=== PATIENT | female | born 1990 | race Caucasian/White ===

== ENCOUNTER 2017-01-13 20:23 | Emergency (ER) | payer SELFPAY ==
[~2017-01-13] VITALS: Ht 167.6 cm; Wt 70.0 kg
[~2017-01-13 20:23] MED LIST: DICY1TAB26 PO; LOMO PO; ZOFR4TAB3 SL
[2017-01-13 20:25] VITALS: BP 144/99; PULSE 144; RESP 24; TEMP 98.3; O2SAT 98
--- NOTE | 2017-01-13 20:35 | PD ---
Physical Exam Time Seen by Provider: 20:33 Narrative 26 y/o female ehre for evaluation of anxiety secondary to "family problems." She feels jittery, shaky, emotionally overwhelmed for 5 days. Endorses vomiting /diarrhea associated with this. She is tearful and hyperventilating during interview. Vital signs reviewed. Seen at triage desk. Awaiting bed placement. Data Data Last Documented VS Vital Signs Date Time Temp Pulse Resp B/P Pulse Ox O2 Delivery O2 Flow Rate FiO2 01/13/17 20:25 98.3 144 24 144/99 98 MDM Medical Record Reviewed: Yes Supervised Visit with CARMEN: No Asim Sellers Jan 13, 2017 20:35
[2017-01-13] MEDS ORDERED: SODIUM CHLOR 0.9% 1000 ML INJ 1,000 ML IV SCH (20:50)
--- NOTE | 2017-01-13 20:56 | PD ---
HPI Chief Complaint: Anxiety Time Seen by Provider: 20:52 Travel History International Travel<30 days: No Contact w/Intl Traveler<30days: No Traveled to known affect area: No History of Present Illness HPI Patient comes to the emergency department for evaluation of possible panic attacks ongoing for 5 days. Patient denies ever being diagnosed with panic attacks states her mother gets them. Patient states over the past 5 days she has had to deal with a lot of family issues causing her to feel overwhelmed. Patient reports associated nausea, vomiting, and diarrhea. Denies any blood vomit or stool. Reports vomiting is nonbilious. Denies any chest pain, shortness of breath, abdominal pain, thoracic, loss change in bowel or bladder, , melena, fevers, recent travel, edema, smoking, or control use. Patient states she is able to easily he is breathing techniques to calm herself down, but then gets herself work back up again. Patient reports feeling jittery and shaky with this. Denies any suicidal or homicidal ideations. PFSH Past Medical History Medical History: Denies Significant Hx Diminished Hearing: No ?: Not LMP: 12/08/16 : 0 Past Surgical History Surgical History: No Previous Surgery Social History Alcohol Use: Yes (rarely) Tobacco Use: No Substance Use: Yes (marijuana occ) Allergies-Medications (Allergen,Severity, Reaction): Coded Allergies: No Known Allergies (Verified , 01/13/17) Reported Meds & Prescriptions Reported Meds & Active Scripts Active Vistaril (Hydroxyzine Pamoate) 25 Mg Cap 25 Mg PO Q6H PRN Review of Systems Except as stated in HPI: all other systems reviewed are Neg Physical Exam Narrative GENERAL: Well-developed, well nourished, in no acute distress, and non-ill appearing. SKIN: Focused skin assessment warm and dry. HEAD: Atraumatic. Normocephalic. EYES: Pupils equal and round. EOMI. No scleral icterus. No injection or drainage. ENT: No nasal bleeding or discharge. Mucous membranes pink and moist. NECK: Trachea midline. No JVD. Supple. No nuclear rigidity. CARDIOVASCULAR: Regular rate and rhythm. No murmur appreciated. RESPIRATORY: No accessory muscle use. No respiratory distress. Clear to auscultation. Breath sounds equal bilaterally. GASTROINTESTINAL: Abdomen soft, non-tender, nondistended, and no guarding. Hepatic and splenic margins not palpable. Normal bowel sounds 4. No pulsatile mass. MUSCULOSKELETAL: No obvious deformities. No clubbing. No cyanosis. No edema. Full range of motion. NEUROLOGICAL: Awake and alert. No obvious cranial nerve deficits. Motor grossly within normal limits. Normal speech. PSYCHIATRIC: Appropriate mood and affect; insight and judgment normal. Data Data Last Documented VS Vital Signs Date Time Temp Pulse Resp B/P Pulse Ox O2 Delivery O2 Flow Rate FiO2 01/13/17 23:00 66 18 118/70 98 Room Air 01/13/17 20:25 98.3 Orders Complete Blood Count With Diff (01/13/17 20:50) Comprehensive Metabolic Panel (01/13/17 20:50) Lipase (01/13/17 20:50) Urinalysis - C+S If Indicated (01/13/17 20:50) Iv Access Insert/Monitor (01/13/17 20:50) Ecg Monitoring (01/13/17 20:50) Oximetry (01/13/17 20:50) Ondansetron Inj (Zofran Inj) (01/13/17 21:00) Sodium Chlor 0.9% 1000 Ml Inj (Ns 1000 M (01/13/17 20:50) Sodium Chloride 0.9% Flush (Ns Flush) (01/13/17 21:00) Electrocardiogram (01/13/17 20:50) Ed Urine Pregnancytest Poc (01/13/17 20:50) Hydroxyzine Pamoate (Vistaril) (01/13/17 21:00) Drug Screen, Random Urine (01/13/17 20:54) Alcohol (Ethanol) (01/13/17 20:50) Ondansetron Inj (Zofran Inj) (01/13/17 22:15) Sodium Chlor 0.9% 1000 Ml Inj (Ns 1000 M (01/13/17 22:30) Potassium Chloride (Kcl) (01/13/17 22:30) Labs Laboratory Tests Test 01/13/17 01/13/17 01/13/17 21:12 22:10 22:45 White Blood Count 12.1 TH/MM3 Red Blood Count 4.85 MIL/MM3 Hemoglobin 13.9 GM/DL Hematocrit 40.6 % Mean Corpuscular Volume 83.8 FL Mean Corpuscular Hemoglobin 28.6 PG Mean Corpuscular Hemoglobin 34.1 % Concent Red Cell Distribution Width 13.2 % Platelet Count 396 TH/MM3 Mean Platelet Volume 8.2 FL Neutrophils (%) (Auto) 76.7 % Lymphocytes (%) (Auto) 14.7 % Monocytes (%) (Auto) 8.2 % Eosinophils (%) (Auto) 0.0 % Basophils (%) (Auto) 0.4 % Neutrophils # (Auto) 9.2 TH/MM3 Lymphocytes # (Auto) 1.8 TH/MM3 Monocytes # (Auto) 1.0 TH/MM3 Eosinophils # (Auto) 0.0 TH/MM3 Basophils # (Auto) 0.1 TH/MM3 CBC Comment DIFF FINAL Differential Comment Sodium Level 137 MEQ/L Potassium Level 3.3 MEQ/L Chloride Level 108 MEQ/L Carbon Dioxide Level 22.2 MEQ/L Anion Gap 7 MEQ/L Blood Urea Nitrogen 15 MG/DL Creatinine 0.93 MG/DL Estimat Glomerular Filtration 72 ML/MIN Rate Random Glucose 105 MG/DL Calcium Level 8.6 MG/DL Total Bilirubin 0.5 MG/DL Aspartate Amino Transf 15 U/L (AST/SGOT) Alanine Aminotransferase 19 U/L (ALT/SGPT) Alkaline Phosphatase 90 U/L Total Protein 7.5 GM/DL Albumin 4.0 GM/DL Lipase 128 U/L Ethyl Alcohol Level LESS THAN 3 MG/DL Urine Opiates Screen NEG Urine Barbiturates Screen NEG Urine Amphetamines Screen NEG Urine Benzodiazepines Screen NEG Urine Cocaine Screen NEG Urine Cannabinoids Screen POS Urine Color YELLOW Urine Turbidity HAZY Urine pH 5.5 Urine Specific [place] 1.022 Urine Protein TRACE mg/dL Urine Glucose (UA) NEG mg/dL Urine Ketones 40 mg/dL Urine Occult Blood NEG Urine Nitrite NEG Urine Bilirubin NEG Urine Urobilinogen LESS THAN 2.0 MG/DL Urine Leukocyte Esterase TRACE Urine WBC 2 /hpf Urine Squamous Epithelial 5 /hpf Cells Urine Hyaline Casts 2 /lpf Urine Mucus FEW /lpf Microscopic Urinalysis Comment CULT NOT INDICATED MDM Medical Decision Making Medical Screen Exam Complete: Yes Emergency Medical Condition: Yes Interpretation(s) EKG reviewed by Dr. Arango shows sinus rhythm with ventricular rate of 81. No STEMI. Differential Diagnosis Electrolyte abnormality, gastritis, stress, anxiety, dehydration, UTI, other Narrative Course 2225 patient reassess reports improvement of symptoms. UA pending. Patient looks great, non-ill appearing but does appear slightly volume depleted without evidence of significant dehydration. The patient was given IVF in the Emergency Department for rehydration. The patient responded well and is tolerating fluids and appears hydrated. I suspect stress-induced versus possible gastritis by history and exam. The abdominal exam is unremarkable without defined focal tenderness. There are normal active bowel sounds without any masses, distension, or significant tenderness. There was no evidence of an acute, surgical abdomen at this time. There was no clinical evidence to support cholecystitis/cholelithiasis, pancreatitis, perforation of gastric ulcer, colitis, diverticulitis, peritonitis, obstruction, volvulus, early appendicitis , or hernial incarceration or strangulation at this time. There was no evidence to support vascular pathology such as AAA, mesenteric ischemia. There was also no clinical evidence by history, exam or risk factors to suggest atypical presentation of cardiac disease such as ACS, AMI or atypical angina. No evidence to suggest genitourinary etiology as well. During the course of the ED visit, the patient noted improvement. Clinical picture was discussed with the patient, as well as plan of care. The patient was instructed to follow up with their physician. Abdominal pain warnings were discussed with the patient. The patient is to return if worsens, pain worsens or changes, develop fever, inability to tolerate fluids with or without vomiting, increased vomiting, blood in vomit, unable to establish follow up or as needed. The patient agrees with plan. The patient was tolerating fluids at time of discharge. Patient in no obvious distress upon re-evaluation. All pertinent laboratory result(s) discussed with patient/family. Discussed patient with Dr. Arango prior to discharge, who is in agreement with plan of care and disposition. Patient was asked if they wanted to speak to my attending, which the patient did not wish to do at this time. Any questions/concerns in reference to patient diagnosis/condition discussed and clarified prior to patient's discharge. Reinforced sheer importance of close follow up with patient's primary physician or primary care clinic. Instructed patient to return to ED immediately, if symptoms return/worsen. Pt showed understanding of above instructions. Further instructions and recommendations were detailed in discharge paperwork. Pt ambulated without difficulty out of ED at discharge. Diagnosis Primary Impression: Nausea vomiting and diarrhea Additional Impression: Stress Referrals: [facility] Patient Instructions: Acute Diarrhea (GEN), Acute Nausea and Vomiting (ED), General Instructions, Stress (ED) Additional Instructions: Follow-up with your primary care physician and/or [facility] in 2-3 days for reevaluation. Take all medication as prescribed. Return to the emergency department if symptoms get worse. Med/Other Pt SpecificInfo: Prescription(s) given Scripts Hydroxyzine Pamoate (Vistaril)25 Mg Cap25 Mg PO Q6H PRN (ANXIETY AND/OR AGITATION) #15 CAP Ref 0 Prov:eMgan Arango MD 01/13/17 Disposition: 01 DISCHARGE HOME Condition: Stable Vasyl Alvarado Jan 13, 2017 20:56
[2017-01-13] MEDS ORDERED: SODIUM CHLORIDE 0.9% FLUSH 10 ML FLUSH IV FLUSH PRN (21:00)
[2017-01-13] MEDS ORDERED: hydrOXYzine PAMOATE 25 MG CAP PO ONE (21:00)
[2017-01-13] MEDS ORDERED: ONDANSETRON HCL 4 MG/2 ML VIAL IVP ONE (21:00)
[2017-01-13 21:05] VITALS: RESP 33; O2SAT 99
[2017-01-13 21:30] LABS: AUTOMATED NEUTROPHIL # 9.2 TH/MM3 (1.8-7.7); BASOPHIL # 0.1 TH/MM3 (0-0.2); BASOPHIL % 0.4 % (0.0-2.0); HEMATOCRIT 40.6 % (35.0-46.0); HEMO FLAGS DIFF FINAL; LYMPH % 14.7 % (9.0-44.0); LYMPHOCYTE # 1.8 TH/MM3 (1.0-4.8); MEAN CELL VOLUME 83.8 FL (80.0-100.0); MEAN CORPUSCULAR HEMOGLOBIN 28.6 PG (27.0-34.0); MEAN CORPUSCULAR HGB CONC 34.1 % (32.0-36.0); MONO % 8.2 % (0.0-8.0); NEUT % 76.7 % (16.0-70.0); PLATELET COUNT 396 TH/MM3 (150-450); RED BLOOD COUNT 4.85 MIL/MM3 (4.00-5.30); RED CELL DISTRIBUTION WIDTH 13.2 % (11.6-17.2); WHITE BLOOD COUNT 12.1 TH/MM3 (4.0-11.0)
[2017-01-13 21:54] LABS: ALCOHOL LESS THAN 3 MG/DL (0-5); ANION GAP 7 MEQ/L (5-15); AST (GOT) 15 U/L (15-37); BICARBONATE 22.2 MEQ/L (21.0-32.0); BLOOD UREA NITROGEN 15 MG/DL (7-18); CHLORIDE 108 MEQ/L (98-107); GLOMERULAR FILTRATION RATE 72 ML/MIN (>89); POTASSIUM 3.3 MEQ/L (3.5-5.1); SODIUM (NA) 137 MEQ/L (136-145)
[2017-01-13 21:55] LABS: ALT (GPT) 19 U/L (10-53)
[2017-01-13 21:57] LABS: ALKALINE PHOSPHATASE 90 U/L (45-117); TOTAL BILIRUBIN ADULT 0.5 MG/DL (0.2-1.0)
[2017-01-13] MEDS ORDERED: ONDANSETRON HCL 4 MG/2 ML VIAL IV PUSH ONE (22:15)
[2017-01-13] MEDS ORDERED: POTASSIUM CHLORIDE 20 MEQ CONTROLLED RELEASE TAB PO ONE (22:30)
[2017-01-13] MEDS ORDERED: SODIUM CHLOR 0.9% 1000 ML INJ 1,000 ML IV ONE (22:30)
[2017-01-13] MEDS ORDERED: VIST25CA PO (22:31)
[2017-01-13 23:00] VITALS: BP 118/70; PULSE 66; RESP 18; O2SAT 98
[2017-01-13 23:16] LABS: BLOOD, URINE NEG (NEG); COMMENT (UR) CULT NOT INDICATED; CULTURE IF INDICATED CULT NOT INDICATED; GLUCOSE,URINE NEG (NEG); HYALINE CAST, URINE 2 /lpf (RARE); KETONE, URINE 40 mg/dL (NEG); MUCUS URINE FEW /lpf (OCC); NITRITE,URINE NEG (NEG); PH, URINE 5.5 (5.0-8.5); SQUAMOUS EPITHELIAL CELL URINE 5 /hpf (0-5); URINE COLOR YELLOW (YELLW/STRAW)
--- NOTE | 2017-01-14 14:34 | EKG ---
Date Performed: 01/13/2017 Time Performed: 21:20:27 PTAGE: 26 years EKG: Sinus rhythm WITH SINUS ARRHYTHMIA NORMAL ECG NO PREVIOUS TRACING DOCTOR: John Aldrich Interpretating Date/Time 01/14/2017 14:33:01
== END 2017-01-13 23:54 | disposition home or self-care (01) ==
LOC: NEPC 20:23
DX: R11.2 Nausea with vomiting, unspecified (principal); R19.7 Diarrhea, unspecified; F43.9 Reaction to severe stress, unspecified; F41.0 Panic disorder [episodic paroxysmal anxiety]; I49.8 Other specified cardiac arrhythmias
CPT/HCPCS: 80053; 80307; 81001; 83690; 84703; 85025; 93005; 96361; 96374; 96376; 99284; J2405; J7030; Q0177

== ENCOUNTER 2017-01-16 12:57 | Inpatient (IN) | payer SELFPAY ==
[~2017-01-16] VITALS: Ht 167.6 cm; Wt 65.8 kg
[~2017-01-16 12:57] MED LIST changes: +VIST25CA PO
[2017-01-16 13:01] VITALS: BP 143/100; PULSE 122; RESP 24; TEMP 98.5; O2SAT 97
--- NOTE | 2017-01-16 13:38 | PD ---
Physical Exam Date Seen by Provider: Jan 16, 2017 Time Seen by Provider: 13:35 Narrative 26 y/o female here for ongoing abdominal pain and current complaints of Depression and ongoing crying. Denies suicidal or homicidal thoughts. was seen 3 days ago and given Visteril and referred to [facility]. They were seen there, but sent here for Psych Eval. Vital Signs reviewed. Patient is Stable and awaiting Bed Placement. Data Data Last Documented VS Vital Signs Date Time Temp Pulse Resp B/P (MAP) Pulse Ox O2 Delivery O2 Flow Rate FiO2 01/16/17 13:01 98.5 122 24 143/100 (114) 97 Room Air [facility] Medical Record Reviewed: Yes Supervised Visit with CARMEN: Yes Condition: Stable Jackson Galeas Jan 16, 2017 13:38
[2017-01-16 14:25] LABS: BASOPHIL # 0.1 TH/MM3 (0-0.2); BASOPHIL % 1.2 % (0.0-2.0); EOSINOPHIL # 0.1 TH/MM3 (0-0.4); EOSINOPHIL % 1.7 % (0.0-4.0); HEMATOCRIT 42.2 % (35.0-46.0); HEMO FLAGS DIFF FINAL; LYMPH % 24.8 % (9.0-44.0); MEAN CORPUSCULAR HEMOGLOBIN 28.7 PG (27.0-34.0); MEAN CORPUSCULAR HGB CONC 33.4 % (32.0-36.0); MONO % 11.3 % (0.0-8.0); PLATELET COUNT 369 TH/MM3 (150-450); RED BLOOD COUNT 4.91 MIL/MM3 (4.00-5.30); RED CELL DISTRIBUTION WIDTH 13.5 % (11.6-17.2); WHITE BLOOD COUNT 8.2 TH/MM3 (4.0-11.0)
[2017-01-16 14:29] LABS: BLOOD, URINE NEG (NEG); GLUCOSE,URINE NEG (NEG); KETONE, URINE NEG (NEG); NITRITE,URINE NEG (NEG); PH, URINE 5.5 (5.0-8.5); URINE COLOR LIGHT-YELLOW (YELLW/STRAW)
[2017-01-16 14:30] LABS: COMMENT (UR) CULT NOT INDICATED; CULTURE IF INDICATED CULT NOT INDICATED
[2017-01-16 14:42] LABS: ANION GAP 8 MEQ/L (5-15); AST (GOT) 10 U/L (15-37); BICARBONATE 27.9 MEQ/L (21.0-32.0); BLOOD UREA NITROGEN 8 MG/DL (7-18); CHLORIDE 104 MEQ/L (98-107); GLOMERULAR FILTRATION RATE 75 ML/MIN (>89); POTASSIUM 3.4 MEQ/L (3.5-5.1); SODIUM (NA) 140 MEQ/L (136-145)
[2017-01-16 14:43] LABS: ALT (GPT) 18 U/L (10-53)
[2017-01-16 14:46] LABS: ALKALINE PHOSPHATASE 80 U/L (45-117); TOTAL BILIRUBIN ADULT 0.4 MG/DL (0.2-1.0)
--- NOTE | 2017-01-16 17:30 | PD ---
HPI Chief Complaint: Depression Time Seen by Provider: 16:33 Travel History International Travel<30 days: No Contact w/Intl Traveler<30days: No Traveled to known affect area: No History of Present Illness HPI 26-year-old female presents to the emergency Department voluntarily for psychiatric evaluation. Patient states that she has been having anxiety attack starting one week ago. She states that she had a ruptured child in her father recently tried to get back in her life. She states that this is causing a lot of anxiety bring back memories. The patient is tearful upon my exam. She denies any suicidal or homicidal thoughts. She states that she smokes marijuana occasionally, denies any other illicit drug use. Patient is no chronic medical problems. She states that she was given a prescription for Vistaril for anxiety recently. Otherwise, she takes no other medications. PFSH Past Medical History Diminished Hearing: No ?: Not LMP: 12/08/16 : 0 Social History Alcohol Use: Yes (rarely) Tobacco Use: No Substance Use: Yes (marijuana occ) Allergies-Medications (Allergen,Severity, Reaction): Coded Allergies: No Known Allergies (Verified , 01/13/17) Reported Meds & Prescriptions Reported Meds & Active Scripts Active Vistaril (Hydroxyzine Pamoate) 25 Mg Cap 25 Mg PO Q6H PRN Review of Systems Except as stated in HPI: all other systems reviewed are Neg Physical Exam Narrative GENERAL: Well-nourished, well-developed female patient, ambulatory. Afebrile. SKIN: Focused skin assessment warm/dry. HEAD: Normocephalic. Atraumatic. EYES: No scleral icterus. No injection or drainage. NECK: Supple, trachea midline. No JVD or lymphadenopathy. CARDIOVASCULAR: Regular rate and rhythm without murmurs, gallops, or rubs. RESPIRATORY: Breath sounds equal bilaterally. No accessory muscle use. Lungs sounds are clear to auscultation. GASTROINTESTINAL: Abdomen soft, non-tender, nondistended. MUSCULOSKELETAL: No cyanosis, or edema. PSYCHIATRIC: No delusional thought processes. No hallucinations. Patient is tearful. Data Data Last Documented VS Vital Signs Date Time Temp Pulse Resp B/P (MAP) Pulse Ox O2 Delivery O2 Flow Rate FiO2 01/16/17 17:57 99 20 141/97 (112) 100 01/16/17 13:01 98.5 Room Air Orders Orders Complete Blood Count With Diff (01/16/17 13:39) Comprehensive Metabolic Panel (01/16/17 13:39) Urinalysis - C+S If Indicated (01/16/17 13:39) Ed Urine Pregnancytest Poc (01/16/17 13:39) Psych Screen (01/16/17 13:39) Drug Screen, Random Urine (01/16/17 13:39) Labs Laboratory Tests Test 01/16/17 13:39 01/16/17 13:50 Urine Opiates Screen NEG Urine Barbiturates Screen NEG Urine Amphetamines Screen NEG Urine Benzodiazepines Screen NEG Urine Cocaine Screen NEG Urine Cannabinoids Screen POS White Blood Count 8.2 TH/MM3 Red Blood Count 4.91 MIL/MM3 Hemoglobin 14.1 GM/DL Hematocrit 42.2 % Mean Corpuscular Volume 86.0 FL Mean Corpuscular Hemoglobin 28.7 PG Mean Corpuscular Hemoglobin Concent 33.4 % Red Cell Distribution Width 13.5 % Platelet Count 369 TH/MM3 Mean Platelet Volume 8.0 FL Neutrophils (%) (Auto) 61.0 % Lymphocytes (%) (Auto) 24.8 % Monocytes (%) (Auto) 11.3 % Eosinophils (%) (Auto) 1.7 % Basophils (%) (Auto) 1.2 % Neutrophils # (Auto) 5.0 TH/MM3 Lymphocytes # (Auto) 2.0 TH/MM3 Monocytes # (Auto) 0.9 TH/MM3 Eosinophils # (Auto) 0.1 TH/MM3 Basophils # (Auto) 0.1 TH/MM3 CBC Comment DIFF FINAL Differential Comment Urine Color LIGHT-YELLOW Urine Turbidity CLEAR Urine pH 5.5 Urine Specific [place] 1.005 Urine Protein NEG mg/dL Urine Glucose (UA) NEG mg/dL Urine Ketones NEG mg/dL Urine Occult Blood NEG Urine Nitrite NEG Urine Bilirubin NEG Urine Urobilinogen LESS THAN 2.0 MG/DL Urine Leukocyte Esterase NEG Urine RBC LESS THAN 1 /hpf Urine WBC LESS THAN 1 /hpf Microscopic Urinalysis Comment CULT NOT INDICATED Blood Urea Nitrogen 8 MG/DL Creatinine 0.90 MG/DL Random Glucose 90 MG/DL Total Protein 7.3 GM/DL Albumin 3.9 GM/DL Calcium Level 8.8 MG/DL Alkaline Phosphatase 80 U/L Aspartate Amino Transf (AST/SGOT) 10 U/L Alanine Aminotransferase (ALT/SGPT) 18 U/L Total Bilirubin 0.4 MG/DL Sodium Level 140 MEQ/L Potassium Level 3.4 MEQ/L Chloride Level 104 MEQ/L Carbon Dioxide Level 27.9 MEQ/L Anion Gap 8 MEQ/L Estimat Glomerular Filtration Rate 75 ML/MIN MDM Medical Decision Making Medical Screen Exam Complete: Yes Emergency Medical Condition: Yes Medical Record Reviewed: Yes Differential Diagnosis Anxiety versus depression versus medical clearance Narrative Course 18-year-old female presents to the emergency Department voluntarily for psychiatric evaluation. Patient states she is anxious, but denies any suicidal or homicidal ideation. CBC shows no acute abnormality. CMP shows no acute abnormality. Urine drug screen is positive for cannabinoids. UA is negative for acute infection. Patient is medically cleared for psychiatric screening and disposition. Mental health screening discussed with the patient. Psychiatric screen ordered. Diagnosis Primary Impression: Anxiety Additional Instructions: Patient is medically cleared for psychiatric screening and disposition. Condition: Stable Margoth Caputo Jan 16, 2017 17:29
[2017-01-16 17:57] VITALS: BP 141/97; PULSE 99; RESP 20; O2SAT 100
[2017-01-16] MEDS ORDERED: ONDANSETRON ODT 4 MG TAB PO ONE (19:45)
[2017-01-16 22:06] VITALS: BP 116/79; PULSE 77; RESP 18
[2017-01-16] MEDS ORDERED: POTASSIUM CHLORIDE 20 MEQ CONTROLLED RELEASE TAB PO ONE (23:30)
[2017-01-17 00:12] VITALS: BP 153/81; PULSE 87; RESP 18; TEMP 97; O2SAT 100
--- NOTE | 2017-01-17 01:31 | PD.CONS ---
HPI [facility] Consult Requested By Dr. Hagen . Reason for Consult Nausea, vomiting, and diarrhea . Primary Care Physician No Primary Care Physician Diagnoses: (1) Loose stools (2) Nausea & vomiting (3) Anxiety History of Present Illness Written by Radha Johansen, acting as scribe for Dr. Ruiz on 01/17/17 at 01:28. The patient was seen in psychiatry. She reports having loose stools since Monday occurring about once or twice a day accompanied by nausea and vomiting. The loose stools are described as watery. She denies any blood or mucus in her stool. She denies abdominal pain other than "gas". She reports her nausea and vomiting seems to be related to increased anxiety. She states she doesn't eat because of anxiety and stress. When she finally eats and gets food in her mouth , it makes her feel nauseated. She notices no relationship between marijuana smoking and occurrence of nausea. She denies eating seafood recently, recent travel, or sick close contacts. She states that her last loose stool occurred in morning 01/16 and her nausea and vomiting have not recurred since she's been here at [facility]. Review of Systems Except as stated in HPI: all other systems reviewed are Neg Past Family Social History Allergies: Uncoded Allergies: LACTOSE INTOLERANT (Allergy, Severe, Diarrhea, 01/17/17) Past Medical History Denies any past medical history other than anxiety and panic attacks. . Past Surgical History Denies any surgeries . Reported Medications Reported Meds & Active Scripts Active Vistaril (Hydroxyzine Pamoate) 25 Mg Cap 25 Mg PO Q6H PRN . Active Ordered Medications Current Medications Ondansetron HCl (Zofran Odt) 4 mg ONCE ONCE PO Last administered on t 19:45; Start 01/16/17 at 19:45; Stop 01/16/17 at 19:46; Status DC Hydroxyzine HCl (Atarax) 50 mg Q6H PRN PO ANXIETY; Start 01/17/17 at 23:15 Diphenhydramine HCl (Benadryl) 50 mg HS PRN PO INSOMNIA; Start 01/17/17 at 23: 15 Diphenhydramine HCl (Benadryl Inj) 50 mg HS PRN IM INSOMNIA; Start 01/17/17 at 23:15 Acetaminophen (Tylenol) 650 mg Q4H PRN PO Pain 1-5 or Temp >101F; Start at 23:15 Magnesium Hydroxide (Milk Of Magnesia Liq) 30 ml DAILY PRN PO CONSTIPATION; Start 01/17/17 at 23:15 Al Hydrox/Mg Hydrox/Simethicone (Mag-Al Plus Susp Liq) 30 ml Q6H PRN PO DYSPEPSIA; Start 01/17/17 at 23:15 Nicotine (Habitrol 21 Mg Patch.24 Hr) 1 patch DAILY T-DERMAL ; Start 01/18/17 at 09:00 Miscellaneous Information 1 HS T-DERMAL ; Start 01/17/17 at 21:00 Potassium Chloride (KCl) 20 meq ONCE ONCE PO Last administered on 01/16/17t 23 :30; Start 01/16/17 at 23:30; Stop 01/16/17 at 23:31; Status DC . Family History No family history of any stomach problems or Crohn's disease Grandfather has heart problems . Social History Denies smoking or alcohol use. Reports occasional marijuana use . Physical Exam Vital Signs Vital Signs Date Time Temp Pulse Resp B/P (MAP) Pulse Ox O2 Delivery O2 Flow Rate FiO2 01/17/17 00:12 97.0 87 18 153/81 (105) 100 01/16/17 22:06 77 18 116/79 (91) 01/16/17 17:57 99 20 141/97 (112) 100 01/16/17 13:01 98.5 122 24 143/100 (114) 97 Room Air Physical Exam GENERAL: This is a pleasant well-nourished, well-developed patient, in no apparent distress. SKIN: No rashes, ecchymoses or lesions. Cool and dry. HEAD: Atraumatic. Normocephalic. EYES: No scleral icterus. No injection or drainage. ENT: Nose without bleeding, purulent drainage. Dry mucous membranes. NECK: Trachea midline. No JVD or lymphadenopathy. CARDIOVASCULAR: Regular rate and rhythm without murmurs, gallops, or rubs. RESPIRATORY: Clear to auscultation. Breath sounds equal bilaterally. No wheezes , rales, or rhonchi. GASTROINTESTINAL: Abdomen soft, minimally tender on right, nondistended. No guarding. MUSCULOSKELETAL: Extremities without clubbing, cyanosis, or edema. No calf tenderness. NEUROLOGICAL: Awake and alert. Motor and sensory grossly within normal limits. Normal speech. . Laboratory Laboratory Tests Test 01/16/17 13:39 01/16/17 13:50 Urine Opiates Screen NEG Urine Barbiturates Screen NEG Urine Amphetamines Screen NEG Urine Benzodiazepines Screen NEG Urine Cocaine Screen NEG Urine Cannabinoids Screen POS White Blood Count 8.2 Red Blood Count 4.91 Hemoglobin 14.1 Hematocrit 42.2 Mean Corpuscular Volume 86.0 Mean Corpuscular Hemoglobin 28.7 Mean Corpuscular Hemoglobin Concent 33.4 Red Cell Distribution Width 13.5 Platelet Count 369 Mean Platelet Volume 8.0 Neutrophils (%) (Auto) 61.0 Lymphocytes (%) (Auto) 24.8 Monocytes (%) (Auto) 11.3 Eosinophils (%) (Auto) 1.7 Basophils (%) (Auto) 1.2 Neutrophils # (Auto) 5.0 Lymphocytes # (Auto) 2.0 Monocytes # (Auto) 0.9 Eosinophils # (Auto) 0.1 Basophils # (Auto) 0.1 CBC Comment DIFF FINAL Differential Comment Urine Color LIGHT-YELLOW Urine Turbidity CLEAR Urine pH 5.5 Urine Specific [place] 1.005 Urine Protein NEG Urine Glucose (UA) NEG Urine Ketones NEG Urine Occult Blood NEG Urine Nitrite NEG Urine Bilirubin NEG Urine Urobilinogen LESS THAN 2.0 Urine Leukocyte Esterase NEG Urine RBC LESS THAN 1 Urine WBC LESS THAN 1 Microscopic Urinalysis Comment CULT NOT INDICATED Blood Urea Nitrogen 8 Creatinine 0.90 Random Glucose 90 Total Protein 7.3 Albumin 3.9 Calcium Level 8.8 Alkaline Phosphatase 80 Aspartate Amino Transf (AST/SGOT) 10 Alanine Aminotransferase (ALT/SGPT) 18 Total Bilirubin 0.4 Sodium Level 140 Potassium Level 3.4 Chloride Level 104 Carbon Dioxide Level 27.9 Anion Gap 8 Estimat Glomerular Filtration Rate 75 Result Diagram: 01/16/17 1350 01/16/17 1350 Assessment and Plan Problem List: (1) Nausea & vomiting ICD Code: R11.2 - Nausea with vomiting, unspecified (2) Loose stools ICD Code: R19.5 - Other fecal abnormalities (3) Anxiety ICD Code: F41.9 - Anxiety disorder, unspecified Status: Acute Assessment and Plan Intermittent nausea, vomiting, and loose stools - Suspect this is related to stress and anxiety - Supportive treatment - Encouraged increased fluid intake - Lactinex - Anticipate resolution with control of psychiatric symptoms as managed by psychiatry - Patient instructed to notify nurse for worsening diarrhea, or recurrence of nausea, or vomiting Hypokalemia - Potassium 3.4 on admission - Replaced orally - Labs pending for recheck in a.m. - follow results and replace potassium as needed - We'll check magnesium level Discussed Condition With Patient and RNThis note was transcribed by yony Johansen. I, Dr. Renato Ruiz personally performed the history, physical exam, and medical decision making; and confirmed the accuracy of the information in the transcribed note. Authenticated by Dr. Renato Ruiz on 01/17/17 at 01:32. Radha Johansen Jan 17, 2017 01:31 Renato Ruiz MD Jan 17, 2017 01:32
[2017-01-17 05:53] VITALS: BP 122/86; PULSE 102; RESP 18; TEMP 97.2; O2SAT 98
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
[2017-01-17] MEDS ORDERED: ONDANSETRON ODT 4 MG TAB PO PRN (08:45)
[2017-01-17] MEDS ORDERED: PILL SPLITTER OTHER PRN (09:00)
[2017-01-17 09:53] LABS: MAGNESIUM 2.3 MG/DL (1.5-2.5)
[2017-01-17 09:57] LABS: HDL CHOLESTEROL 44.8 MG/DL (40.0-60.0); LDL CHOLESTEROL 101 MG/DL (0-99)
[2017-01-17] MEDS: CITALOPRAM HYDROBROMIDE 20 MG TAB PO SCH (10:48)
[2017-01-17 12:03] LABS: BICARBONATE 26.7 MEQ/L (21.0-32.0); POTASSIUM 4.1 MEQ/L (3.5-5.1)
[2017-01-17 12:12] LABS: FREE T4 1.38 NG/DL (0.76-1.46)
--- NOTE | 2017-01-17 13:50 | EKG ---
Date Performed: 01/17/2017 Time Performed: 08:09:09 PTAGE: 26 years EKG: Sinus rhythm WITH SHORT NM INTERVAL BORDERLINE ECG Compared to prior tracing no significant change PREVIOUS TRACING : 01/13/2017 21.20 DOCTOR: Suha Arenas Interpretating Date/Time 01/17/2017 13:44:22
[2017-01-17] MEDS ORDERED: hydrOXYzine HCL 50 MG TAB PO ONE (15:00)
[2017-01-17] MEDS ORDERED: PROMETHAZINE HCL 25 MG TAB PO PRN (17:15)
[2017-01-17 17:42] LABS: HEMOGLOBIN A1a 0.8 %; HEMOGLOBIN A1b 1.7 %; HEMOGLOBIN Ao 86.4 %; HEMOGLOBIN LA1C 1.9 %; HEMOGLOBIN P3 3.4 %
[2017-01-17 18:12] VITALS: BP 123/77; PULSE 64; RESP 18; TEMP 98.2; O2SAT 96
[2017-01-17] MEDS ORDERED: REMOVE OLD NICOTINE PATCH T-DERMAL SCH (21:00)
[2017-01-17] MEDS ORDERED: PRAZOSIN HCL 1 MG CAP PO SCH (21:00)
[2017-01-17] MEDS ORDERED: ACETAMINOPHEN 325 MG TAB PO PRN (23:15)
[2017-01-17] MEDS ORDERED: hydrOXYzine HCL 50 MG TAB PO PRN (23:15)
[2017-01-17] MEDS ORDERED: diphenhydrAMINE HCL 50 MG CAP - HS PRN PO (23:15)
[2017-01-17] MEDS ORDERED: diphenhydrAMINE HCL 50 MG/ML VIAL - HS PRN IM (23:15)
[2017-01-17] MEDS ORDERED: ALUMINUM/MAGNESIUM/SIMETH 30 ML CUP PO PRN (23:15)
[2017-01-17] MEDS ORDERED: MAGNESIUM HYDROXIDE SUSP 30 ML CUP PO PRN (23:15)
[2017-01-18 06:03] VITALS: BP 106/75; PULSE 80; RESP 18; TEMP 98.2; O2SAT 99
[2017-01-18] MEDS: CITALOPRAM HYDROBROMIDE 20 MG TAB PO SCH (08:24)
[2017-01-18] MEDS ORDERED: NICOTINE 21 MG/24 HR PATCH T-DERMAL SCH (09:00)
--- NOTE | 2017-01-18 15:27 | HHI.PYPN ---
Subjective Remarks Patient seen and examined with nurse. Chart reviewed. Case discussed with nursing staff. On my examination today, the patient complains of ongoing generalized anxiety. She says that she is troubled chiefly with the physical sensations of anxiety, which she likens to performance anxiety. She also has been experiencing intermittent episodes of panic but has a technique that she learned to count numbers out of sync and finds this very effective for aborting a panic attack. Mood is described as "a little better." She slept poorly overnight and did not find it the prazosin helpful. She does not really find the Atarax helpful for her anxiety, which again is chiefly the physical manifestations of the anxiety. Denies side effects from medications besides sweating, which may be related to anxiety or can be seen with SSRIs. No other physical complaints. Review of Systems Except as stated in HPI: all other systems reviewed are Neg Objective Alert: Yes [place]: Person, Place, Date, Situation Mood: Anxious, Depressed (somewhat improved) Affect: Appropriate (consistent with stated mood) Memory Intact: Comment (intact) Hallucinations: Other (no hallucinations) Delusions: No Delusion Type: Other (no delusions) Suicidal: Ideation (denies SI) Homicidal: Ideation (denies HI) Insight/Judgment Good Remarks No motor abnormalities noted. Thought process linear. Grooming and hygiene good. Labs Labs reviewed. Vitals/IOs Vital Signs Date Time Temp Pulse Resp B/P (MAP) Pulse Ox O2 Delivery O2 Flow Rate FiO2 01/18/17 06:03 98.2 80 18 106/75 (85) 99 01/16/17 13:01 Room Air Assessment & Plan Problem List: (1) Major depressive disorder, recurrent, moderate ICD Codes: F33.1 - Major depressive disorder, recurrent, moderate Status: Acute (2) Other mixed anxiety disorders ICD Codes: F41.3 - Other mixed anxiety disorders Status: Acute (3) Chronic post-traumatic stress disorder ICD Codes: F43.12 - Post-traumatic stress disorder, chronic Status: Chronic (4) Use of cannabis ICD Codes: F12.90 - Cannabis use, unspecified, uncomplicated Status: Chronic Assessment & Plan Given that the patient is troubled chiefly by the physical sensations of her anxiety and given her lack of response to the prazosin, discontinue prazosin and start Inderal 10 mg 3 times daily with blood pressure and heart rate parameters. Risks, benefits and alternatives discussed with the patient. Continue Celexa as ordered. Hospitalist input appreciated. Continue other medications and care as ordered. Justification for Cont. Inpt. Medication changes in process. Discharge Planning Pending stabilization. Patient is hopeful for discharge by the end of the week , and I do not think this is unreasonable. Request HC Surrog/Guard Advoc?: No Tio Alan MD Jan 18, 2017 15:27
--- NOTE | 2017-01-18 16:27 | HHI.PR ---
Subjective Remarks Follow-up visit nausea, vomiting. Patient seen and examined today. Reports she continues to have anxiety which sugars her nausea. She reported this to the psychologist/psychiatrist and states that they are switching her medications. Denies pain and discomfort. Denies SOB/ dyspnea. Denies chest pain, palpitations, headaches, dizziness. Denies fevers, chills, n/v/d. Objective Vitals Vital Signs Date Time Temp Pulse Resp B/P (MAP) Pulse Ox O2 Delivery O2 Flow Rate FiO2 01/18/17 06:03 98.2 80 18 106/75 (85) 99 01/17/17 18:12 98.2 64 18 123/77 (92) 96 Result Diagram: 01/16/17 1350 01/17/17 0823 Objective Remarks GENERAL: This is a well-nourished, well-developed patient, in no apparent distress. SKIN: Warm and dry. HEENT: Normocephalic. Pupils equal round and reactive. Nose without bleeding. Airway patent. NECK: Trachea midline. No JVD. Supple. CARDIOVASCULAR: Tachycardia without murmurs, gallops, or rubs. RESPIRATORY: Clear to auscultation. Breath sounds equal bilaterally. No wheezes , rales, or rhonchi. GASTROINTESTINAL: Abdomen soft, non-tender, nondistended. Bowel Sounds normoactive x4. MUSCULOSKELETAL: Extremities without clubbing, cyanosis, or edema. NEUROLOGICAL: Awake and alert. Oriented to time, place, person. No focal neuro deficit. Moves all extremities. Normal speech. A/P Problem List: (1) Nausea & vomiting ICD Code: R11.2 - Nausea with vomiting, unspecified (2) Loose stools ICD Code: R19.5 - Other fecal abnormalities (3) Anxiety ICD Code: F41.9 - Anxiety disorder, unspecified Status: Acute Assessment and Plan Patient is 26-year-old female presents to the emergency Department voluntarily for psychiatric evaluation for her anxiety. Intermittent nausea, vomiting - Possible related to stress and anxiety, possible resolution with anxiety and any other psychiatric symptoms. She discussed this with the psychiatrist and they will change her medications. - Supportive treatment - Encouraged increased fluid intake - Zofran, Phenergan - Hypokalemia resolved. DVT prop low risk, ambulatory Discuss with patient, nursing, and Dr. Ирина Sue from Hospitalist standpoint. We will sign off. Reconsult as needed. Nile Santana [facility] Jan 18, 2017 16:27
[2017-01-18 18:00] VITALS: BP 125/81; PULSE 107; RESP 18; TEMP 97.7; O2SAT 95
[2017-01-18] MEDS: PROPRANOLOL HCL 10 MG TAB PO SCH (22:09)
[2017-01-19 06:08] VITALS: BP 136/84; PULSE 79; RESP 17; TEMP 98.1
[2017-01-19] MEDS: PROPRANOLOL HCL 10 MG TAB PO SCH ×3 (08:34→21:00)
[2017-01-19] MEDS: CITALOPRAM HYDROBROMIDE 20 MG TAB PO SCH (08:34)
[2017-01-19 10:04] LABS: BICARBONATE 28.3 MEQ/L (21.0-32.0)
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
[2017-01-19 15:05] VITALS: BP 145/98; PULSE 86; RESP 16; O2SAT 98
[2017-01-19 18:51] VITALS: BP 121/88; PULSE 82; RESP 18; TEMP 98.3; O2SAT 96
[2017-01-20 05:25] VITALS: BP 114/69; PULSE 82; RESP 16; TEMP 97.3; O2SAT 97
[2017-01-20] MEDS ORDERED: PROP10TA6 PO (08:04)
[2017-01-20] MEDS ORDERED: CELE20TA PO (08:04)
[2017-01-20] MEDS: CITALOPRAM HYDROBROMIDE 20 MG TAB PO SCH (09:23)
[2017-01-20] MEDS: PROPRANOLOL HCL 10 MG TAB PO SCH (09:24)
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
== END 2017-01-20 15:30 | disposition home or self-care (01) | DRG 885 ==
LOC: NEPJ 12:57 → NEDA 23:00 → H270 01-17 00:10 → H260 01-17 14:15
PROVIDERS: ADMIT Psychiatry & Neurology Psychiatry; ATTEND Psychiatry & Neurology Psychiatry
DX: F33.1 Major depressive disorder, recurrent, moderate (principal); E87.6 Hypokalemia; F41.0 Panic disorder [episodic paroxysmal anxiety]; F41.3 Other mixed anxiety disorders; F43.12 Post-traumatic stress disorder, chronic; F12.90 Cannabis use, unspecified, uncomplicated; F40.10 Social phobia, unspecified; Z81.1 Family history of alcohol abuse and dependence
CPT/HCPCS: 80048; 80053; 80061; 80307; 81001; 83036; 83735; 84439; 84443; 84703; 85025; 93005